=== PATIENT | male | born 1980 ===

== ENCOUNTER 2018-02-22 20:54 | Inpatient (IN) | payer SELFPAY ==
[2018-02-22] MEDS ORDERED: Acetaminophen TAB* 325 MG PO PRN (21:52)
[2018-02-22] MEDS ORDERED: Ondansetron 40 MG VIAL* 2 MG/ML 20 ML VIAL IV PRN (21:52)
[2018-02-22] MEDS ORDERED: Heparin DRIP 25,000 UNITS(*) 25,000 UNITS/500 ML BAG IV SCH ×3 (22:15→23:15)
[2018-02-22 22:54] LABS: ABS Basophils 0 10^3/ul (0-0.2); ABS Eosinophils 0.2 10^3/ul (0-0.6); ABS Lymphocytes 2.1 10^3/ul (1.0-4.8); ABS Monocytes 0.6 10^3/ul (0-0.8); ABS Neutrophils 10.8 10^3/ul (1.5-7.7); ABS Nucleated RBC 0 10^3/ul; Eosinophil % 1.1 % (0-6); Hematocrit 40 % (42-52); Hemoglobin 13.9 g/dl (14.0-18.0); Lymphocyte % 15.4 % (25-47); Mean Corpuscular HGB Conc 35 g/dl (31-36); Mean Corpuscular Hemoglobin 29 pg (27-31); Mean Corpuscular Volume 85 fL (80-94); Nucleated Red Blood Cells % 0; Platelet Count 249 10^3/ul (150-450); Red Blood Count 4.75 10^6/ul (4.0-5.4); Red Cell Distribution Width 13 % (10.5-15); White Blood Count 13.7 10^3/ul (3.5-10.8)
[2018-02-22 22:56] LABS: INR 0.92 (0.77-1.02)
[2018-02-22 23:05] LABS: EGFR Non-African American 96.2 (>60)
[2018-02-22] MEDS ORDERED: Heparin VIAL(*) 5000 UNITS/ML VIAL (FIVE THOUSAND) IV PRN (23:19)
[2018-02-22] MEDS ORDERED: Iohexol 350* (CONTRAST) 500 ML MDV IV ONE (23:21)
[2018-02-22 23:30] LABS: Urine Appearance Clear; Urine Blood Negative (Negative); Urine Color Straw; Urine Ketones Negative (Negative); Urine Protein Negative (Negative); Urine Specific Gravity 1.012 (1.010-1.030); Urine Urobilinogen Negative (Negative)
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
[2018-02-23 06:14] LABS: ABS Basophils 0 10^3/ul (0-0.2); ABS Eosinophils 0.2 10^3/ul (0-0.6); ABS Lymphocytes 2.7 10^3/ul (1.0-4.8); ABS Monocytes 0.6 10^3/ul (0-0.8); ABS Nucleated RBC 0 10^3/ul; Eosinophil % 1.8 % (0-6); Hematocrit 44 % (42-52); Lymphocyte % 23.1 % (25-47); Mean Corpuscular HGB Conc 34 g/dl (31-36); Mean Corpuscular Hemoglobin 29 pg (27-31); Mean Corpuscular Volume 85 fL (80-94); Mean Platelet Volume 7.9 um3 (7.4-10.4); Nucleated Red Blood Cells % 0.1; Platelet Count 270 10^3/ul (150-450); Red Blood Count 5.18 10^6/ul (4.0-5.4); Red Cell Distribution Width 13 % (10.5-15); White Blood Count 11.5 10^3/ul (3.5-10.8)
[2018-02-23 06:28] LABS: EGFR Non-African American 107.2 (>60)
[2018-02-23] MEDS ORDERED: Nitroglycerin 2% OINT* 1 GM PAK TOPICAL SCH (08:00)
--- NOTE | 2018-02-23 08:00 | RAD ---
INDICATION: Chest pain and elevated troponin. COMPARISON: There are no prior studies available for comparison. TECHNIQUE: A CT angiogram of the chest was performed with intravenous following intravenous injection of 69 ml of Omnipaque 350 nonionic contrast. Contiguous axial sections were obtained from the lung apices through the lung bases. Images were reconstructed in the coronal and sagittal planes. FINDINGS: There is relatively homogeneous opacification of the pulmonary arteries. No intraluminal filling defect or pulmonary embolism is seen. The heart is within normal limits in size. No pericardial effusion is present. The thoracic aorta is normal in caliber and demonstrates homogeneous contrast opacification. No significant enlarged mediastinal or hilar lymph nodes are seen. The lungs are clear. No pleural effusion is seen. No significant focal osseous abnormality is seen. IMPRESSION: NO EVIDENCE FOR PULMONARY EMBOLISM.
--- NOTE | 2018-02-23 08:48 | ECHO ---
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 Technical Comments: The study quality is good. Completed at 0824. Left Ventricle: The left ventricular chamber size is normal. Global left ventricular wall motion and contractility are within normal limits. There is normal left ventricular systolic function. The estimated ejection fraction is 60-65%. Normal left ventricular diastolic filling is observed. Left Atrium: The left atrial chamber size is normal. Right Ventricle: The right ventricular cavity size is normal. The right ventricular global systolic function is normal. Right Atrium: The right atrial cavity size is normal. Aortic Valve: The aortic valve is trileaflet. There is no evidence of aortic regurgitation. There is no evidence of aortic stenosis. Mitral Valve: The mitral valve leaflets are mildly thickened. There is a trace of mitral regurgitation. Tricuspid Valve: The tricuspid valve leaflets are normal. There is a physiologic tricuspid regurgitation. Unable to estimate the right ventricular systolic pressure. Pulmonic Valve: The pulmonic valve appears normal. There is trace to mild pulmonic regurgitation. There is no pulmonic stenosis. Pericardium: There is no significant pericardial effusion. Aorta: There is no dilatation of the ascending aorta. There is no dilatation of the aortic arch. There is no dilation of the aortic root.MD re-measurement at 3.5 cm. Pulmonary Artery: The main pulmonary artery appears normal. Venous: The venous system is not well visualized. Conclusions There is normal left ventricular systolic function. The estimated ejection fraction is 60-65%. Global left ventricular wall motion and contractility are within normal limits. Normal cardiac chamber sizes. Functionally benign heart valves. There is no prior echocardiogram available to compare with at this time. Measurements Name Value Normal Range RVIDd (AP) 2D 2.6 cm (0.9 - 2.6) RVDdMajor (2D) 3.3 cm (2.2 - 4.4) RAd ISD 4CH 4.9 cm (3.4 - 4.9) RA (A4C)W 3.4 cm (2.9 - 4.6) IVSd (2D) 1.1 cm (0.6 - 1) LVPWd (2D) 1.2 cm (0.6 - 1) LVIDd (2D) 4.4 cm (3.6 - 5.4) LVIDs (2D) 2.3 cm - LV FS (2D) 48 % (25 - 45) Aortic Annulus 1.9 cm (1.4 - 2.6) Ao root diameter (2D) 3.5 cm (2.1 - 3.5) Ascending Ao 2.7 cm (2.1 - 3.4) Aortic arch 1.7 cm (1.8 - 3.4) Descending Ao 0.6 cm - LA dimension (AP) 2D 2.6 cm (2.3 - 3.8) LAd ISD 4CH 4 cm (2.9 - 5.3) LA ISD 4CH W 2.4 cm (2.5 - 4.5) Name Value Normal Range LA ESV SP 4CH (A/L) 14 ml - LA ESV SP 2CH (A/L) 28 ml - LA ESV BP (A/L) 24 ml - LA ESV BP (A/L) index 13.58 ml/m2 - LA ESV SP 4CH (MOD) 12 ml - LA ESV SP 2CH (MOD) 27 ml - Name Value Normal Range MV E-wave Vmax 0.8 m/sec - MV deceleration time 172 msec - MV A-wave Vmax 0.6 m/sec - MV E:A ratio 1.39 ratio - LV septal e' Vmax 0.1 m/sec - LV lateral e' Vmax 0.1 m/sec - LV E:e' septal ratio 8 ratio - LV E:e' lateral ratio 8 ratio - Name Value Normal Range AV Vmax 1.2 m/sec - AV VTI 23.6 cm - AV peak gradient 5.62 mmHg - AV mean gradient 3.44 mmHg - LVOT Vmax 1 m/sec - LVOT VTI 20.8 cm - LVOT peak gradient 3.69 mmHg - LVOT mean gradient 1.76 mmHg - Name Value Normal Range PV Vmax 0.7 m/sec - PV peak gradient 1.91 mmHg -
[2018-02-23] MEDS ORDERED: Atorvastatin* 40 MG TAB PO SCH (09:00)
[2018-02-23] MEDS: Aspirin 81 mg CHEW TAB* 81 MG TAB.CHEW PO SCH (09:14)
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
[2018-02-23] MEDS ORDERED: Heparin(*) 1000 UNIT/ML 10 ML VIAL CATH LAB IV ONE (13:19)
[2018-02-23] MEDS ORDERED: fentaNYL* 50 MCG/ML 2 ML VIAL (100 MCG VIAL) ONE (13:19)
[2018-02-23] MEDS ORDERED: nitroGLYCERIN DRIP* 25,000 MCG/250 ML BTL ONE (13:20)
[2018-02-23] MEDS ORDERED: Iohexol 350 (CONTRAST) 200 ML MDV IV ONE ×2 (13:20→14:09)
[2018-02-23] MEDS ORDERED: Heparin 2 UNITS/ML IVPREMIX* 2,000 ML IV ONE (13:20)
[2018-02-23] MEDS ORDERED: Lidocaine 1% INJ* 10 MG/ML 30 ML SDV ONE (13:20)
[2018-02-23] MEDS ORDERED: Midazolam* 1 MG/ML 10 ML VIAL (10 MG) ONE (13:21)
[2018-02-23] MEDS ORDERED: VERAPAMIL 2.5 MG/ML 2 ML VIAL ** 5 mg/2 ml ONE (13:21)
--- NOTE | 2018-02-23 13:46 | PN ---
Subjective Date of Service: 02/23/18 Interval History: Mr. Galvez denies chest pain since return from the microbiology laboratory manager. He further denies SOB, nausea, or abdominal pain. Objective Active Medications: Acetaminophen (Tylenol Tab*) 650 mg PO Q4H PRN Aspirin (Aspirin 81 Mg Chew Tab*) 81 mg PO DAILY [facility] Atorvastatin Calcium (Lipitor*) 40 mg PO 0900 [facility] Heparin Sodium (Porcine) (Heparin Vial(*)) 0 units IV .FOR BOLUSES PRN Metoprolol Tartrate (Lopressor Tab*) 25 mg PO BID [facility] Ondansetron HCl (Zofran 40 Mg Vial*) 4 mg IV Q6H PRN Pharmacy Profile Note (Nitro Patch/Oint Remove*) 1 note TOPICAL 1999 [facility] Vital Signs: Temp Pulse Resp BP Pulse Ox 99.2 F 81 11 141/100 100 02/23/18 07:19 02/23/18 12:30 02/23/18 12:30 02/23/18 12:30 02/23/18 12:30 Oxygen Devices in Use Now: None Appearance: Male lying in bed in NAD Eyes: No Scleral Icterus Neck: NL Appearance and Movements; NL JVP, Trachea Midline Respiratory: Symmetrical Chest Expansion and Respiratory Effort, Clear to Auscultation Cardiovascular: NL Sounds; No Murmurs; No JVD, No Edema Abdominal: NL Sounds; No Tenderness; No Distention Lymphatic: No Cervical Adenopathy Skin: No Rash or Ulcers Neurological: Alert and Oriented x 3, NL Muscle Strength and Tone Nutrition: Taking PO's Result Diagrams: 02/23/18 05:55 02/23/18 15:18 Assess/Plan/Problems-Billing Assessment: Mr. Galvez is a 37 yo male with a PMH of hyperlipidemia who was admitted on 02/22 with chest pain. - Patient Problems (1) Chest pain Comment: - Trops and EKG negative but stress echo showed ischemia. - Cardiac cath with two vessel disease now s/p stenting. - Plan for aspirin, brillinta, metoprolol. Patient states that he is unable to tolerate statins. - Appreciate cardiology consultation. (2) Hyperlipidemia Comment: - Patient unable to tolerate statins. (3) DVT prophylaxis Comment: - SCDs. (4) Full code status Comment: Status and Disposition: OBV. Anticipate discharge to home when medically stale.
[2018-02-23] MEDS ORDERED: Aspirin 81 mg CHEW TAB* 81 MG TAB.CHEW ONE (14:06)
[2018-02-23] MEDS ORDERED: Ticagrelor* 90 MG TAB PO ONE (14:06)
[2018-02-23] MEDS ORDERED: Nitroglycerin TAB 0.4 MG* 0.4 MG TAB SL PRN (14:58)
[2018-02-23] MEDS ORDERED: NS 0.9% 1000 ML* 1,000 ML IV SCH (15:00)
[2018-02-23 16:08] LABS: EGFR Non-African American 101.4 (>60)
[2018-02-23] MEDS: Metoprolol Tartrate TAB* 25 MG PO SCH ×2 (16:30→21:17)
[2018-02-23] MEDS ORDERED: Nitro Patch/OINT Remove TOPICAL SCH (20:00)
[2018-02-23] MEDS: Ticagrelor* 90 MG TAB PO SCH (21:17)
[2018-02-24 05:24] LABS: EGFR Non-African American 97.4 (>60)
--- NOTE | 2018-02-24 05:36 | CATH ---
STENT REPORT: DATE OF PROCEDURE: 02/23/18 PRIMARY CARE PHYSICIAN: None. PROCEDURE: Right radial artery access, bilateral selective coronary cineangiography, left heart catheterization, stent placement ramus 2.75 x 12 Xience drug-eluting stent, stent placement circumflex 2.5 x 16 Synergy drug- eluting stent. HISTORY: A 37-year-old male with hyperlipidemia and hypertension, presenting with ACS/non-ST elevation infarct with relatively atypical chest pain, but peak troponin of 0.12 with subsequent decrease, and intermediate risk stress echo with high level of exercise capacity, but accompanied by significant ST depression and inferobasilar hypokinesis. PROCEDURE ACCESS: Right radial artery sheath 6F slender. MEDICATIONS: 1. Subcu lidocaine. 2. IV Versed. 3. IV fentanyl. 4. Heparin 3000 units. 5. Verapamil 3 mg. 6. Nitroglycerin 300 mcg IA. 7. Heparin 3000 units IV, 3000 units IV. DIAGNOSTIC CATHETER: A 5F TIG4, which was used to measure LV pressure as well. GUIDING CATHETER: A 6F VL3.5 wire 14 BMW used to deploy a 2.75 x 12 Xience Alpine drug-eluting stent in the ramus, which was postdilated with a 2.75 x 12 NC balloon to 18 atmospheres. The same wire was used to deploy a 2.5 x 16 Synergy drug- eluting stent in the mid circumflex, which was then postdilated with a 2.5 x 15 NC balloon to 18 atmospheres. HEMODYNAMICS: Initial BP 158/98, LV 133/13-16, no aortic valve gradient on pullback. ANGIOGRAPHY: RCA: The RCA is large, dominant, with heavy calcification, and fairly diffuse nonobstructive luminal irregularity. The PDA is large. The RCA has no significant flow-limiting stenosis. Left Main: The left main is relatively short, has no stenosis. LAD: The LAD is moderate with a high first diagonal branch, almost as a parallel LAD. The LAD system has mild systolic bridging mid portion, has no significant stenosis. Circumflex: The circumflex is moderate, not dominant with a large ramus branch , which has a proximal discrete 90% stenosis. The circumflex continuation has an 80% to 90% stenosis before ending with a moderate posterolateral branch. After LISA placement ramus and circumflex and high pressure postdilatation, there is no residual stenosis, dissection, distal flow is [id number]. CONCLUSION: 1. One-vessel coronary artery disease, ramus and circumflex, excellent angiographic result with drug-eluting stent placements. 2. Normal left-sided hemodynamics. 3. Normal LV systolic function by echo. 4. Successful right radial artery access. [id number]/[facility] #: [id number] NATASHA
[2018-02-24] MEDS: Metoprolol Tartrate TAB* 25 MG PO SCH (08:37)
[2018-02-24] MEDS: Aspirin 81 mg CHEW TAB* 81 MG TAB.CHEW PO SCH (08:37)
[2018-02-24] MEDS: Ticagrelor* 90 MG TAB PO SCH (08:37)
[2018-02-24 11:21] VITALS: BP 119/88
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
== END 2018-02-24 13:45 | disposition home or self-care (01) | DRG 247 ==
LOC: INTOOBSV 21:03 → MEDTELE 21:03 → OBSVTOIN 02-23 16:10 → ICU 02-23 16:14 → MEDTELE 02-23 16:14 → ICU 02-23 16:32
PROVIDERS: ADMIT Hospitalist; ATTEND Student in an Organized Health Care Education/Training Program
PROC: 027135Z Dilation of Coronary Artery, Two Arteries with Two Drug-eluting Intraluminal Devices, Percutaneous Approach (ICD-10-PCS; 2018-02-23)
PROC: 4A023N7 Measurement of Cardiac Sampling and Pressure, Left Heart, Percutaneous Approach (ICD-10-PCS; 2018-02-23)
PROC: B2111ZZ Fluoroscopy of Multiple Coronary Arteries using Low Osmolar Contrast (ICD-10-PCS; 2018-02-23)
PROC: 4A12XM4 Monitoring of Cardiac Stress, External Approach (ICD-10-PCS; principal; 2018-02-23 13:15)
DX: I25.10 Atherosclerotic heart disease of native coronary artery without angina pectoris (principal); R07.89 Other chest pain; I45.10 Unspecified right bundle-branch block; I10 Essential (primary) hypertension; E78.5 Hyperlipidemia, unspecified; Z79.02 Long term (current) use of antithrombotics/antiplatelets; Z79.82 Long term (current) use of aspirin; Z72.89 Other problems related to lifestyle
CPT/HCPCS: 36415; 71275; 80048; 80061; 80076; 80307; 81003; 83036; 84484; 85025; 85610; 85652; 85730; 86140; 93005; 93306; 93351; 93458; 99156; 99157; A9270-GY; C1725; C1769; C1876; C1887; C9600-RI; C9601-LC; J1644; J2250; J2405; J3010; Q9967